=== PATIENT | female | born 2000 | race Caucasian/White ===

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

== ENCOUNTER 2022-07-01 18:26 | Emergency (ER) | payer OTHER ==
[~2022-07-01] VITALS: Ht 160 cm; Wt 54.4 kg
[~2022-07-01 18:26] MED LIST changes: +CEPH500 PO
== END 2022-07-01 19:46 | disposition home or self-care (01) ==
LOC: ER 18:26
DX: J10.1 Influenza due to other identified influenza virus with other respiratory manifestations (principal); F17.210 Nicotine dependence, cigarettes, uncomplicated; Z91.030 Bee allergy status; Z88.5 Allergy status to narcotic agent; Z88.0 Allergy status to penicillin; Z88.8 Allergy status to other drugs, medicaments and biological substances; Z79.899 Other long term (current) drug therapy
CPT/HCPCS: 99283

== ENCOUNTER 2024-01-23 14:19 | Emergency (ER) | payer OTHER ==
[~2024-01-23] VITALS: Ht 165.1 cm; Wt 56.2 kg
[2024-01-23 14:25] VITALS: BP 110/74
== END 2024-01-23 14:28 | disposition home or self-care (01) ==
LOC: ER 14:19
DX: T63.441A Toxic effect of venom of bees, accidental (unintentional), initial encounter (principal); M79.671 Pain in right foot; F17.210 Nicotine dependence, cigarettes, uncomplicated; Z88.1 Allergy status to other antibiotic agents; Z88.5 Allergy status to narcotic agent; Z88.8 Allergy status to other drugs, medicaments and biological substances
CPT/HCPCS: 99282

== ENCOUNTER 2024-05-11 11:29 | Emergency (ER) | payer OTHER ==
[~2024-05-11] VITALS: Ht 162.6 cm; Wt 59.0 kg
[2024-05-11 11:47] VITALS: BP 100/70
== END 2024-05-11 13:02 | disposition home or self-care (01) ==
LOC: ER 11:29
DX: L02.411 Cutaneous abscess of right axilla (principal); F17.210 Nicotine dependence, cigarettes, uncomplicated; Z88.0 Allergy status to penicillin; Z88.1 Allergy status to other antibiotic agents; Z88.8 Allergy status to other drugs, medicaments and biological substances; Z88.5 Allergy status to narcotic agent; Z91.038 Other insect allergy status
CPT/HCPCS: 10060; 99283-25

== ENCOUNTER 2025-07-10 19:17 | Emergency (ER) | payer OTHER ==
[~2025-07-10] VITALS: Ht 162.6 cm; Wt 65.8 kg
[2025-07-10 19:35] VITALS: BP 116/85
== END 2025-07-10 21:45 | disposition home or self-care (01) ==
LOC: ER 19:17
DX: S50.02XA Contusion of left elbow, initial encounter (principal); W10.9XXA Fall (on) (from) unspecified stairs and steps, initial encounter; F17.200 Nicotine dependence, unspecified, uncomplicated; Z88.0 Allergy status to penicillin; Z88.1 Allergy status to other antibiotic agents; Z88.5 Allergy status to narcotic agent; Z91.030 Bee allergy status
CPT/HCPCS: 73080; 99283-25